=== PATIENT | female | born 1990 | race Caucasian/White ===

== ENCOUNTER 2024-08-08 06:20 | Emergency (ER) | payer OTHER, SELFPAY ==
[2024-08-08 06:21] VITALS: BP 138/97
--- NOTE | 2024-08-08 07:08 | ED.GENMED ---
History of Present Illness
General
Chief Complaint: Catheter/Tube Problem
Source: patient
Time Seen by Provider: 08/08/24 06:28
History of Present Illness
History of Present Illness:
This is a 33-year-old female who is 3 weeks who has had urinary retention . The patient states that since giving she has not been able to urinate and has been following with Dr. Dupont from urology. She had a void
trial recently but was unable to void. She is scheduled to follow-up on . Patient presents after her Shanks catheter was not put out much urine. No fevers. No hematuria. No vomiting. No abdominal pain. Of note she has a history of
interstitial cystitis
Past History
Past History
ED Past Medical History: Other (Interstitial cystitis)
Phy Exam
Physical Exam
Physical Exam:
CONSTITUTIONAL Patient alert and oriented to person, place and time. Well-appearing. Vital signs reviewed.
HEAD atraumatic, normocephalic.
EYES eyelids normal to inspection, Extraocular muscles intact, Conjunctiva normal, Sclera normal.
NECK normal range of motion, Trachea midline, no jugular venous distention.
RESPIRATORY CHEST No respiratory distress noted, Chest expansion equal
ABDOMEN abdomen nontender, Bowel sounds normal. No distention.
BACK normal inspection, no obvious deformities
UPPER EXTREMITY range of motion normal, Motor strength normal, no cyanosis, no edema.
LOWER EXTREMITY range of motion normal, Motor strength normal, no cyanosis, no edema.
NEURO Speech normal, No focal motor deficits, [place] coma scale 15, Memory normal, Cranial Nerves intact to screening exam.
SKIN skin warm, dry, and normal in color.
Course
Orders/Labs/Results
Orders:
Orders
08/08/24 07:06
Urinalysis Reflex To Culture Urgent
Date Specimen was Collected: 08/08/24
Time Specimen was Collected: 06:54
Urine Microscopic Reflex Cult Urgent
Urine Culture Urgent
ANDREW Source: U
Specimen Description:
Date Specimen was Collected: 08/08/24
Time Specimen was Collected: 06:54
Abnormal Lab Results
08/08/24
07:06
Ur Occult Blood Reflex 3+ A
(Negative)
Urine Nitrite (Reflex) Positive A
(Negative)
Leukocyte Esterase Rfl 2+ A
(Negative)
Urine WBC (Reflex) 11-15 A /HPF
(0-5)
Urine Bacteria (Reflex) Few A
(Negative)
Vital Signs
Initial and Last Documented VS:
Initial Vital Signs
Temp Pulse Resp BP Pulse Ox
98.7 F 104 16 138/97 100
08/08/24 06:21 08/08/24 06:21 08/08/24 06:21 08/08/24 06:21 08/08/24 06:21
Last Documented Vital Signs
Temp Pulse Resp BP Pulse Ox
98.5 F 79 20 100/69 99
08/08/24 07:20 08/08/24 07:20 08/08/24 07:20 08/08/24 07:20 08/08/24 07:20
MDM/Problems Addressed
MDM/Problems Addressed:
Chronic essential cystitis, acute urinary retention, suspected neurogenic bladder
*Pulse Oximetry
Patient hypoxic: no
*Critical Care Note
Total Time (30-74mins, 75-104mins- exclusive of procedures): Not Applicable
Data Reviewed
Source: patient
Prescriptions/Medications Considered But Not Given:
Consider antibiotics with patient states her nitrates are always positive because of her ulcerative colitis.
Patient Management
Escalation/DeEscalation of care consider admission/obs:
Patient was able to void after Shanks catheter removed. Initial Shanks catheter was not draining. Will watch closely as her postvoid residual is still above 300. Patient states she stopped urinating to get a urine sample and then could not urinate
any further. She would like another trial which I think is reasonable.
9:38 AM patient was able to void 2 more times. Postvoid residual was less than 100 and the patient does feel the urge to void. Patient would like to forego and not replace the Shanks catheter. I think this is reasonable as she does feel the urge
to urinate and she is reliable to monitor her urine output. I did recommend about 1 mL/kg/h of output. She will be sent home with a hat to measure the urine output. She also will follow-up with her urologist on Saturday. I recommended that she
return if she does not urinate in 4 to 6 hours or they for volume or to significantly drop. Patient agrees. She would like to hold off on antibiotics as she typically has nitrates in her urine and wait for the culture. I think this is reasonable.
She is afebrile. Her urine is clear otherwise.
ED Attending Note
-
Portions of this chart may have been created with voice recognition software.� Occasional wrong word or��sound alike� substitutions may have occurred due to the inherent limitations of voice recognition software.
Discharge Plan
Departure
Patient Disposition: Home (Routine Discharge)
Date of Disposition: 08/08/24
Time of Disposition: 09:48
Patient with high blood pressure during this ER visit?: No
Discharge Problem:
Urinary retention
Prescriptions:
New
cephalexin 500 mg capsule
500 mg PO QID Qty: 28 0RF
Referrals:
Aura Russo DO [Family Provider] -
Activity Restrictions/Additional Instructions:
Please see your neurologist on Saturday for follow-up and reevaluation. As discussed, please return for inability to urinate, decrease in urinary volume, fevers, burning with urination or any other concerns.
Interventions
Interventions:
*Risk Screen - Suicide Last Done: 08/08/24 06:21
*General Assessment Last Done: 08/08/24 06:21
*Neglect/Abuse Screening Last Done: 08/08/24 06:21
*ED COVID-19 Vaccine History Last Done: 08/08/24 06:33
HB-Wmeuri-Gkmdczoiez Assessment Last Done: 08/08/24 06:33
ED-Female Genitourinary Assessment Last Done: 08/08/24 06:33
Discharge Date and Time
Print Language: ICELANDIC
[2024-08-08 07:19] VITALS: BP 100/69
--- NOTE | 2024-08-08 07:19 | EDRN ---
the pt was received from previous RN, the previous RN removed the indwelling urinary catheter that the pt presented with, the pt was bladder scanned by previous RN and per Dr. Lau the pt is trying to void, this RN will continue to monitor the pt
closely
[2024-08-08 07:20] VITALS: BP 100/69
--- NOTE | 2024-08-08 07:39 | EDRN ---
the pt pressed the call caraballo and this RN entered the pts room, the pt stated that she urinated, this RN bladder scanned the pt for 43cc, this RN notified Dr. Lau
[2024-08-08 07:46] LABS: Urine Albumin Negative (Neg - Trace); Urine Bilirubin Negative (Negative); Urine Character Clear (Clear); Urine Color Yellow; Urine Glucose Negative (Negative); Urine Ketone Negative (Negative); Urine Leukocyte 2+ (Negative); Urine Nitrite Positive (Negative); Urine Occult Blood 3+ (Negative); Urine Urobilinogen Negative (Neg - 1+)
[2024-08-08 08:22] LABS: Urine Red Blood Cell 0-2 /HPF (0-2)
[2024-08-08 08:23] LABS: Urine Bacteria Few (Negative)
--- NOTE | 2024-08-08 08:54 | EDRN ---
the pt voided again and post void bladder scan was 209, Dr. Lau notified
--- NOTE | 2024-08-08 09:23 | EDRN ---
the pt was voided and was scanned again for 107cc, Dr. Lau notified
--- NOTE | 2024-08-08 09:29 | EDRN ---
Dr. Lau currently at the pts bedside
[2024-08-08 10:11] VITALS: BP 136/81
== END 2024-08-08 10:13 | disposition home or self-care (01) ==
LOC: EMR 06:20
PROVIDERS: EMERGENCY PHYSICIAN Emergency Medicine; FAMILY PHYSICIAN Family Medicine
DX: R33.9 Retention of urine, unspecified (principal)
CPT/HCPCS: 99282; 81003; 81015; 87077; 87086; 87147; 87186

== ENCOUNTER 2024-08-09 14:36 | Emergency (ER) | payer OTHER, SELFPAY ==
[2024-08-09 14:37] VITALS: BP 131/96
--- NOTE | 2024-08-09 16:38 | ED.GENMED ---
Addendum entered and electronically signed by Christine Perez PA-C 08/11/24 09:24:
urine culture prelim coag neg georgina and fadia; on keflex
await sensitivitis
Original Note:
History of Present Illness
General
Chief Complaint: Urinary Symptoms
Source: patient and records
Exam Limitations: none
Time Seen by Provider: 08/09/24 16:25
Nursing documentation reviewed up to this point in time: agreed with
History of Present Illness
History of Present Illness:
33 yo female presents to the emergency department decreased urination. She has a history of interstitial cystitis, and had a dumas catheter in place for retention that was removed in the ED yesterday.
Past History
Past History
ED Past Medical History: Other (Interstitial cystitis)
Social History
Tobacco: Non-smoker
Alcohol: None
Drug: None
Personal:
Living: with family
Review of Systems
Review of Systems
Allergies reviewed?: Yes
All Other Systems: Not applicable
Constitutional: Reports no symptoms
EENT: Reports no symptoms
Respiratory: Reports no symptoms
Cardiac: Reports no symptoms
ABD/GI: Reports no symptoms
: Reports difficulty voiding
Musculoskeletal: Reports no symptoms
Skin: Reports no symptoms
Neurological: Reports no symptoms
Endocrine: Reports no symptoms
Hematologic/Lymphatic: Reports no symptoms
Psychiatric: Reports no symptoms
Phy Exam
Physical Exam
Physical Exam:
Physical Exam
General: no apparent distress, not acutely ill
Neck: supple. no meningeal signs. normal posterior pharynx
Heart: equal radial pulses.
HEENT: Pupils equal round reactive to light, EOMI
Lungs: no acute respiratory distress.
Abdomen: normal bowel sounds. not tender. no CVAT
Neuro: alert and oriented. no focal neurological deficits
Skin: no rash
Psychiatric: well kept. interactive and cooperative
Extremities: no edema. good distal pulses
Course
Orders/Labs/Results
Orders:
Orders
08/09/24 16:28
Bladder Scan- Treatment ONCE
Vital Signs
Initial and Last Documented VS:
Initial Vital Signs
Temp Pulse Resp BP Pulse Ox
98.4 F 100 16 131/96 100
08/09/24 14:37 08/09/24 14:37 08/09/24 14:37 08/09/24 14:37 08/09/24 14:37
Last Documented Vital Signs
Temp Pulse Resp BP Pulse Ox
98.4 F 100 16 131/96 100
08/09/24 14:37 08/09/24 14:37 08/09/24 14:37 08/09/24 14:37 08/09/24 14:37
MDM/Problems Addressed
Differential Diagnosis Includes:
Urinary retention, UTI
MDM/Problems Addressed:
33-year-old female with urinary hesitancy, doubt infection, no signs of retention. Stable for discharge.
Chronic conditions affecting care: Other (Interstitial cystitis)
Acute Exacerbation and/or Progression of Chronic Illness: Other (Interstitial cystitis)
*Pulse Oximetry
Patient hypoxic: no
*Critical Care Note
Total Time (30-74mins, 75-104mins- exclusive of procedures): Not Applicable
Data Reviewed
Review of Other/Old Records Reveals: Labs (Urine culture pending,)
Source: records
Patient Management
Social determinants of health affecting care: Living situation and Strong social support
Escalation/DeEscalation of care consider admission/obs:
Admit not indicated
ED Attending Note
-
Portions of this chart may have been created with voice recognition software.� Occasional wrong word or��sound alike� substitutions may have occurred due to the inherent limitations of voice recognition software.
Discharge Plan
Departure
Patient Disposition: Home (Routine Discharge)
Date of Disposition: 08/09/24
Time of Disposition: 16:58
Patient with high blood pressure during this ER visit?: Yes
Condition: Good
Discharge Problem:
Urinary hesitancy
Instructions: BLOOD PRESSURE
Prescriptions:
No Action
cephalexin 500 mg capsule
500 mg PO QID Qty: 28 0RF
Referrals:
Aura Russo DO [Family Provider] - Call in 1-3 days for appt
Interventions
Interventions:
*Risk Screen - Suicide Last Done: 08/09/24 14:37
*General Assessment Last Done: 08/09/24 14:37
*Neglect/Abuse Screening Last Done: 08/09/24 14:37
*ED- Fall Risk Assessment Last Done: 08/09/24 16:48
*ED COVID-19 Vaccine History Last Done: 08/09/24 14:37
*Nursing Disposition Last Done: 08/09/24 17:01
ED-Female Genitourinary Assessment Last Done: 08/09/24 16:47
Discharge Date and Time
Discharge Date/Time: 08/09/24 17:03
Print Language: ARMENIAN
--- NOTE | 2024-08-11 15:30 | ED.ADDNOTE ---
ED Addendum
ED Addendum
ED Addendum Note:
urin culture staph epidermidis
pt is on keflex
not on the sensitivities but this is sensitive to augmentin
she called an di spoke with her, that she is feeling overall better; no singnficant retention, worsening symptoms
she does feel improved but still feels some urgency
she does have intersitial cystits history and sees urologist
she hasn't called her urologist or her ob about these issues
given option to stay on the keflex since she is improving
or switch to augmentin, it is ok in breast feeding but does go into breast milk
pt will call her specialist who knows her well
== END 2024-08-09 17:03 | disposition home or self-care (01) ==
LOC: EMR 14:36
PROVIDERS: EMERGENCY PHYSICIAN Emergency Medicine; FAMILY PHYSICIAN Family Medicine
DX: O90.89 Other complications of the puerperium, not elsewhere classified (principal); R39.11 Hesitancy of micturition; R03.0 Elevated blood-pressure reading, without diagnosis of hypertension; N30.10 Interstitial cystitis (chronic) without hematuria
CPT/HCPCS: 99283; 51798